=== PATIENT | female | born 2000 | race Caucasian/White ===

== ENCOUNTER 2020-05-09 03:56 | Emergency (ER) | payer OTHER ==
[~2020-05-09] VITALS: Ht 157.5 cm; Wt 122.5 kg
[2020-05-09] MEDS ORDERED: WELLBUTRIN 75 M75 M1 PO (04:38)
[2020-05-09] MEDS ORDERED: LEXAPRO 10 MG T10 M2 PO (04:38)
[2020-05-09] MEDS ORDERED: METFORMIN HCL500 M3 PO ×2 (04:38→04:39)
[2020-05-09 06:45] VITALS: BP 147/86
== END 2020-05-09 06:45 | disposition home or self-care (01) ==
LOC: M.ERS 03:56
DX: S92.512A Displaced fracture of proximal phalanx of left lesser toe(s), initial encounter for closed fracture (principal); E11.9 Type 2 diabetes mellitus without complications; Z88.0 Allergy status to penicillin; Z88.2 Allergy status to sulfonamides; Z79.899 Other long term (current) drug therapy; W01.0XXA Fall on same level from slipping, tripping and stumbling without subsequent striking against object, initial encounter; Y93.89 Activity, other specified; Y92.89 Other specified places as the place of occurrence of the external cause; Y99.9 Unspecified external cause status